=== PATIENT | male | born 1985 | race Caucasian/White ===

== ENCOUNTER 2019-08-17 17:45 | Emergency (ER) | payer BC, OTHER ==
[2019-08-17 18:18] VITALS: BP 106/67; PULSE 115; TEMP 99.7; BMI 25.8
--- NOTE | 2019-08-17 18:18 | PDOC ---
Rapid Medical Evaluation Chief Complaint: Cold Symptoms Time Seen by Provider: 08/17/19 18:16 Medical Evaluation: Allergies Allergy/AdvReac Type Severity Reaction Status Date / Time No Known Allergies Allergy Verified 08/17/19 18:16 08/17/19 18:17 This patient had rapid medical evaluation in triage cc:fever HPI: Patient reports fever, coughing lower back pain and headache since yesterday States took otc medication with no relief of symptoms PE: NAD occasional coughing in triage unlabored breathing Orders: flu -swab This patient will proceed to ed for further evaluation. Discharge Disposition - Diagnosis Fever - Referrals - Patient Instructions - Post Discharge Activity
--- NOTE | 2019-08-17 19:15 | PDOC ---
History of Present Illness - General Chief Complaint: Cold Symptoms Stated Complaint: FEVER & HEADACHE Time Seen by Provider: 08/17/19 18:16 - History of Present Illness Initial Comments: 08/17/19 19:12 33-year-old male without comorbidities presents for flulike symptoms x1 day Past History - Past Medical History Allergies/Adverse Reactions: Allergies Allergy/AdvReac Type Severity Reaction Status Date / Time No Known Allergies Allergy Verified 08/17/19 18:16 Home Medications: Ambulatory Orders Oseltamivir Phosphate [Tamiflu] 75 mg PO BID #10 capsule 08/17/19 - Psycho Social/Smoking Cessation Hx Smoking History: Never smoked Hx Alcohol Use: No Drug/Substance Use Hx: No Review of Systems - Review of Systems Constitutional: Yes: Fever HEENTM: Yes: Nose Congestion Respiratory: Yes: Cough *Physical Exam - Vital Signs Last Vital Signs Temp Pulse Resp BP Pulse Ox 99.7 F H 115 H 18 106/67 100 08/17/19 18:16 08/17/19 18:16 08/17/19 18:16 08/17/19 18:16 08/17/19 18:16 - Physical Exam 08/17/19 19:13 GENERAL: The patient is awake, alert, and fully oriented, in no acute distress. HEAD: Normal with no signs of trauma. EYES: sclera anicteric, conjunctiva clear. ENT: Ears normal tympanic membranes normal oropharynx clear uvula midline NECK: Normal range of motion LUNGS: Breath sounds equal, clear to auscultation bilaterally. No wheezes, and no crackles. HEART: S1 and S2 without murmur, rub or gallop. ABDOMEN: Soft, nontender, normoactive bowel sounds. No guarding, no rebound. No masses. EXTREMITIES: Normal range of motion, no edema. No clubbing or cyanosis. No cords, erythema, or tenderness. NEUROLOGICAL: Cranial nerves II through XII grossly intact. PSYCH: Normal mood, normal affect. SKIN: Warm, Dry, normal turgor, no rashes or lesions noted. Medical Decision Making - Medical Decision Making 08/17/19 19:13 We will treat for flu based on symptoms. 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 Return to the emergency room for worsening symptoms and without fail follow-up with your primary care physician in 1 to 2 days for further evaluation and treatment options. Please take the Tamiflu as directed. - Post Discharge Activity Work/Back to School Note: Back to School
== END 2019-08-17 19:22 | disposition home or self-care (01) ==
LOC: JERFT 17:45
DX: J11.1 Influenza due to unidentified influenza virus with other respiratory manifestations (principal)
CPT/HCPCS: 99283-25

== ENCOUNTER 2019-09-10 11:19 | Emergency (ER) | payer BC, OTHER ==
[2019-09-10 11:26] VITALS: BP 131/65; PULSE 82; TEMP 98.3; BMI 25.8
--- NOTE | 2019-09-10 12:13 | PDOC ---
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 States is used [id number] medications with minimal resolve. States throat is becoming more painful Is this a multiple visit Asthma Patient?: No Timing/Duration: reports: getting worse Severity: reports: mild, moderate Past History - Travel Traveled outside of the country in the last 30 days: No Close contact w/someone who was outside of country & ill: No - Past Medical History Allergies/Adverse Reactions: Allergies Allergy/AdvReac Type Severity Reaction Status Date / Time No Known Allergies Allergy Verified 08/17/19 18:16 Home Medications: Ambulatory Orders Oseltamivir Phosphate [Tamiflu] 75 mg PO BID #10 capsule 08/17/19 Azithromycin [Zithromax -] 250 mg PO UTDICT #6 tab 09/10/19 COPD: No - Immunization History Immunization Up to Date: No - Psycho Social/Smoking Cessation Hx Smoking History: Never smoked Have you smoked in the past 12 months: No Information on smoking cessation initiated: No Hx Alcohol Use: No Drug/Substance Use Hx: No Review of Systems - Review of Systems Able to Perform ROS?: Yes Is the patient limited Icelandic proficient: Yes Constitutional: Yes: Symptoms Reported, See HPI, Fever, Malaise HEENTM: Yes: Symptoms Reported, See HPI, Nose Congestion, Throat Pain, Throat Swelling, Difficulty Swallowing Respiratory: Yes: See HPI. No: Symptoms reported, Cough, Shortness of Breath, Wheezing Integumentary: Yes: Symptoms Reported All Other Systems: Reviewed and Negative *Physical Exam - Vital Signs Last Vital Signs Temp Pulse Resp BP Pulse Ox 98.3 F 82 16 131/65 98 09/10/19 11:23 09/10/19 11:23 09/10/19 11:23 09/10/19 11:23 09/10/19 11:23 - Physical Exam General Appearance: Yes: Nourished, Appropriately Dressed, Mild Distress HEENT: positive: JAY, TMs Normal (Congested but landmarks visualized), Tonsillar Exudate, Tonsillar Erythema, Rhinorrhea. 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 NML intact, Fully Oriented, Alert, Normal Mood/Affect, Normal Response, Motor Strength 11/09 ED Progress Note - Progress Note Progress Note: 09/10/19 14:50 Pharyngitis with classical symptoms and evidence of strep infection will treat with Zithromax Discharge - Discharge Information Problems reviewed: No Clinical Impression/Diagnosis: Pharyngitis Qualifiers: Pharyngitis/tonsillitis etiology: unspecified etiology Qualified Code(s): J02.9 - Acute pharyngitis, unspecified Condition: Stable Disposition: HOME - Admission No - Additional Discharge Information Prescriptions: Azithromycin [Zithromax -] 250 mg PO UTDICT #6 tab - Follow up/Referral - Patient Discharge Instructions Patient Printed Discharge Instructions: DI for Pharyngitis/Tonsillopharyngitis -- Adult Additional Instructions: Rest, avoid strenuous activity or heavy lifting until symptoms and fevers resolve Drink lots of fluids: Water, teas, soups Salt water gargles, steamy showers, old-fashioned treatments to alleviate symptoms Ibuprofen or Tylenol for fever and pain relief May use [id number] medications for symptomatic relief Azithromycin as directed Follow-up with PMD as needed Return to emergency department for worsening swelling, pain, inability to keep hydrated. - Post Discharge Activity Work/Back to School Note: Back to Work
== END 2019-09-10 12:11 | disposition home or self-care (01) ==
LOC: JERFT 11:19
DX: J02.9 Acute pharyngitis, unspecified (principal)
CPT/HCPCS: 99281-25